=== PATIENT | female | born 1980 | race Caucasian/White ===

== ENCOUNTER 2017-09-24 08:44 | Emergency (ER) | payer BC, OTHER ==
[2017-09-24 09:11] VITALS: BP 146/89; PULSE 78; RESP 16; TEMP 98; O2SAT 99
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
--- NOTE | 2017-09-24 12:54 | CT ---
PROCEDURE: CT HEAD WITHOUT CONTRAST. HISTORY: headache COMPARISON: None available. TECHNIQUE: Axial computed tomography images were obtained through the head/brain without intravenous contrast. Radiation dose: Total exam DLP = 883.1 mGy-cm. This CT exam was performed using one or more of the following dose reduction techniques: Automated exposure control, adjustment of the mA and/or kV according to patient size, and/or use of iterative reconstruction technique. FINDINGS: HEMORRHAGE: No intracranial hemorrhage. BRAIN: No mass effect or edema. No atrophy or chronic microvascular ischemic changes. VENTRICLES: Unremarkable. No hydrocephalus. CALVARIUM: Unremarkable. PARANASAL SINUSES: Small polyp or retention cyst left maxillary sinus. No significant inflammatory changes. MASTOID AIR CELLS: Unremarkable as visualized. No inflammatory changes. OTHER FINDINGS: None. IMPRESSION: No acute intracranial pathology.
--- NOTE | 2017-09-24 12:58 | CT ---
PROCEDURE: CT Cervical Spine without contrast HISTORY: neck pain COMPARISON: None available. TECHNIQUE: Axial computed tomography images were obtained of the cervical spine without the use of intravenous contrast. Coronal and sagittal reformatted images were created and reviewed. Radiation dose: Total exam DLP = 437.88 mGy-cm. This CT exam was performed using one or more of the following dose reduction techniques: Automated exposure control, adjustment of the mA and/or kV according to patient size, and/or use of iterative reconstruction technique. FINDINGS: VERTEBRAE: No fracture. Normal alignment. No destructive bony lesion. DISCS/SPINAL CANAL/NEURAL FORAMINA: No significant central canal or neural foraminal stenosis. Discs heights are grossly preserved. PARASPINAL SOFT TISSUES: Unremarkable. OTHER FINDINGS: Small 6 mm hypoattenuating right lower pole thyroid nodule. IMPRESSION: Unremarkable CT of the cervical spine. Right lower pole thyroid nodule. Dedicated thyroid ultrasound can be obtained for further evaluation on a non emergent basis.
== END 2017-09-24 13:59 | disposition home or self-care (01) ==
LOC: H.ER 08:44
DX: M54.5 Low back pain (principal); M54.2 Cervicalgia; V43.52XA Car driver injured in collision with other type car in traffic accident, initial encounter; Y92.410 Unspecified street and highway as the place of occurrence of the external cause; I10 Essential (primary) hypertension; J45.909 Unspecified asthma, uncomplicated; M43.16 Spondylolisthesis, lumbar region; E11.9 Type 2 diabetes mellitus without complications